=== PATIENT | female | born 1950 ===

== ENCOUNTER 2020-09-06 12:39 | Outpatient (REF) | payer MEDICARE, SELFPAY | END 2020-09-06 12:40 | disposition home or self-care (01) | LOC: HO.LAB 12:39 | PROVIDERS: Visit Provider Nurse Practitioner Family | DX: R05 Cough (principal); Z20.828 Contact with and (suspected) exposure to other viral communicable diseases | CPT/HCPCS: U0003 ==

== ENCOUNTER 2020-09-29 10:15 | Outpatient (REF) | payer MEDICARE, SELFPAY ==
[2020-09-29 11:03] LABS: MANUAL DIFF FLAG NO
[2020-09-29 11:16] LABS: Basophils Percent Auto 0.1 % (0-2); Eosinophils Absolute Auto 0.3 X10*3/uL (0.0-0.4); Eosinophils Percent Auto 3.4 % (0-4); Hematocrit 43.6 % (37-47); Hemoglobin 14.4 g/dl (12.0-16.0); Imm Gran Abs Auto 0.03 X10*3/uL (0.00-0.03); Imm Gran Pct Auto 0.3 % (0.0-0.4); Lymphocytes Absolute Auto 1.7 X10*3/uL (1.2-4.9); Lymphocytes Percent Auto 18.9 % (20-40); Mean Corpuscular Hemoglobin 29.6 pg (27.0-33.0); Mean Corpuscular Volume 89.7 fL (80-98); Mean Platelet Volume 11.1 fL (9.4-12.3); Monocytes Absolute Auto 0.5 X10*3/uL (0.1-1.2); Monocytes Percent Auto 5.5 % (2-11); Neutrophils Absolute Auto 6.3 X10*3/uL (2.0-8.3); Neutrophils Percent Auto 71.8 % (45-73); Platelet Count 210 X10*3/uL (160-400); Red Blood Count 4.86 X10*6/uL (4.20-5.50); Red Cell Distribution Width 15.3 % (11.0-16.0); White Blood Count 8.8 X10*3/uL (4.8-10.8)
[2020-09-29 11:39] LABS: Anion Gap 11 (12-20); Blood Urea Nitrogen 21 mg/dL (9-16); Carbon Dioxide 24 mmol/L (22-29); Chloride 112 mmol/L (96-108); Estimated Glomerular Filt Rate 41; Glucose Random 88 mg/dL (60-115); Magnesium 2.3 mg/dL (1.6-2.6); Potassium 3.8 mmol/l (3.3-5.1); Sodium 143 mmol/L (135-145)
[2020-09-29 11:42] LABS: B Type Natriuretic Peptide 15 pg/mL (<100)
[2020-09-29 12:01] LABS: TSH reflex Free T4 < 0.01 mIU/mL (0.32-4.0)
[2020-09-29 12:39] LABS: Free T4 (Free Thyroxine) 1.16 ng/dL (0.71-1.85)
[2020-09-30 10:07] LABS: LDL Cholesterol Direct 145 mg/dL (<100)
[2020-10-03 13:37] LABS: Vitamin D 25-OH, D2 <4 ng/mL; Vitamin D 25-OH, D3 29 ng/mL; Vitamin D 25-OH, Total 29 ng/mL (30-100)
== END 2020-09-29 10:16 | disposition home or self-care (01) ==
LOC: HO.HMGCLDS 10:15
PROVIDERS: Nurse Practitioner Family; PCP Internal Medicine; Visit Provider Internal Medicine
DX: Z76.0 Encounter for issue of repeat prescription (principal); M81.0 Age-related osteoporosis without current pathological fracture; K21.9 Gastro-esophageal reflux disease without esophagitis; I10 Essential (primary) hypertension; E05.90 Thyrotoxicosis, unspecified without thyrotoxic crisis or storm; K59.01 Slow transit constipation; G43.909 Migraine, unspecified, not intractable, without status migrainosus; G47.9 Sleep disorder, unspecified; M19.90 Unspecified osteoarthritis, unspecified site
CPT/HCPCS: 36415; 80048; 82306; 83721; 83735; 83880; 84439; 84443; 85025

== ENCOUNTER → 2021-01-03 14:22 | Outpatient (BNVA) | payer MEDICARE, SELFPAY | PROVIDERS: PCP Internal Medicine; Visit Provider Internal Medicine | DX: J44.9 Chronic obstructive pulmonary disease, unspecified (principal); R05 Cough; R06.02 Shortness of breath; G47.33 Obstructive sleep apnea (adult) (pediatric); Z79.51 Long term (current) use of inhaled steroids; Z79.899 Other long term (current) drug therapy | CPT/HCPCS: Q3014 ==

== ENCOUNTER 2021-01-04 13:56 | Outpatient (REF) | payer MEDICARE, SELFPAY ==
--- NOTE | ~2021-01-04 | XR_ITS ---
EXAMINATION: XR CHEST CLINICAL INFORMATION: J44.9 - Chronic obstructive pulmonary disease, unspecified COMPARISON: Chest radiographs 06/16/2020, 11/17/2019, 09/14/2018 TECHNIQUE: 2 views of the chest were obtained. FINDINGS: There is stable diffuse coarsening of the bronchiolar markings similar to prior study. There is no airspace consolidation or groundglass opacity or effusion. The cardiac and hilar and mediastinal contours are stable. Again, there is prominent tortuous descending thoracic aorta. No acute bony abnormality. XR/XR chest 2V IMPRESSION: No acute intrathoracic disease.
== END 2021-01-04 13:57 | disposition home or self-care (01) ==
LOC: HO.XRAY 13:56
PROVIDERS: PCP Internal Medicine; Visit Provider Internal Medicine
DX: J44.9 Chronic obstructive pulmonary disease, unspecified (principal); R05 Cough; R06.02 Shortness of breath; G47.33 Obstructive sleep apnea (adult) (pediatric); Z88.5 Allergy status to narcotic agent; Z88.0 Allergy status to penicillin; Z88.8 Allergy status to other drugs, medicaments and biological substances; Z79.899 Other long term (current) drug therapy
CPT/HCPCS: 71046; 99212

== ENCOUNTER → 2021-04-12 12:55 | Outpatient (BNVA) | payer OTHER, SELFPAY | PROVIDERS: Visit Provider Internal Medicine ==

== ENCOUNTER → 2021-06-04 09:38 | Outpatient (BNVA) | payer OTHER, SELFPAY | PROVIDERS: PCP Internal Medicine; Visit Provider Internal Medicine | DX: J44.9 Chronic obstructive pulmonary disease, unspecified (principal); G47.33 Obstructive sleep apnea (adult) (pediatric); R06.02 Shortness of breath; I50.9 Heart failure, unspecified | CPT/HCPCS: 99212 ==

== ENCOUNTER 2021-09-27 08:38 | Outpatient (REF) | payer MEDICARE, SELFPAY | END 2021-09-27 08:39 | disposition home or self-care (01) | LOC: HO.HOSX 08:38 | PROVIDERS: Visit Provider Orthopaedic Surgery | DX: Z13.89 Encounter for screening for other disorder (principal) ==

== ENCOUNTER 2021-10-04 12:14 | Outpatient (REF) | payer MEDICARE, SELFPAY ==
--- NOTE | ~2021-10-04 | XR_ITS ---
EXAMINATION: XR KNEE AP STANDING, BILATERAL CLINICAL INFORMATION: Pain in unspecified knee. COMPARISON: XR right knee 01/22/2019. XR bilateral knees 05/31/2016. TECHNIQUE: AP bilateral standing view of the knees was obtained. FINDINGS: There is osteopenia. There is mild medial compartment narrowing in the right knee with small marginal osteophytes. Ossification adjacent to the medial femoral epicondyle is unchanged and may be related to remote medial collateral ligament injury. There has been an interval revision total knee arthroplasty of the left knee with components incompletely visualized but appearing well-seated in near-anatomic alignment. XR/XR knee standing BI IMPRESSION: Mild medial compartment osteoarthritis in the right knee. Revision left total knee arthroplasty appears intact.
== END 2021-10-04 12:15 | disposition home or self-care (01) ==
LOC: HO.HOSX 12:14
PROVIDERS: Visit Provider Orthopaedic Surgery
DX: T84.093A Other mechanical complication of internal left knee prosthesis, initial encounter (principal); I50.9 Heart failure, unspecified; R06.02 Shortness of breath; M79.89 Other specified soft tissue disorders
CPT/HCPCS: 73565; 99202

== ENCOUNTER → 2022-01-08 15:22 | Outpatient (BNVA) | payer MEDICARE, SELFPAY | PROVIDERS: PCP Internal Medicine; Visit Provider Internal Medicine | DX: G47.33 Obstructive sleep apnea (adult) (pediatric) (principal); J44.9 Chronic obstructive pulmonary disease, unspecified; Z99.81 Dependence on supplemental oxygen | CPT/HCPCS: 99212 ==

== ENCOUNTER → 2022-03-06 14:28 | Outpatient (BNVA) | payer MEDICARE, SELFPAY | PROVIDERS: PCP Internal Medicine; Referring Provider Internal Medicine; Visit Provider Internal Medicine | DX: I50.33 Acute on chronic diastolic (congestive) heart failure (principal); I25.5 Ischemic cardiomyopathy; J44.9 Chronic obstructive pulmonary disease, unspecified | CPT/HCPCS: 93005; 99202 ==

== ENCOUNTER → 2022-03-22 14:44 | Outpatient (REF) | payer MEDICARE, SELFPAY ==
--- NOTE | 2022-03-22 14:48 | CA_ITS ---
Transthoracic Echocardiogram Patient (Last, First, Middle): Padmaja Frederick J Gender: Female Date of : 1950 Age: 71 Procedure Date: 03/22/2022 Procedure Type: Transthoracic Echocardiogram Location: OP Height: 165.1 cm Weight: 98.43 kg BSA: 2.05 m2 Heart Rate: bpm BP: 120 / 70 mmHg Manager: TO/VH Referring MD: Russ Her MD Ibm Bpm Developer: Nikko Franco MD Symptoms: I50.33 - Acute on chronic diastolic (congestive) heart fa... Study Quality: Fair ECG Rhythm: Sinus Conclusions: - 1. Normal LV systolic function with grade 1 diastolic dysfunction with mild LVH 2. Moderately dilated ascending aorta at 4.5 cm 3. Mild aortic regurgitation 4. Normal RV systolic pressure 5. No gross pericardial effusion Findings Left Ventricle Normal left ventricular size and systolic function. There is mildly increased left ventricular wall thickness. The visually estimated ejection fraction is between 55-60%. Regional wall motion abnormalities can not be excluded due to suboptimal endocardial definition. Spectral Doppler is indicative of an impaired relaxation filling pattern. E/E prime ratio is <8, consistent with normal filling pressures. Evidence suggests grade I (mild) diastolic dysfunction. Right Ventricle Normal right ventricular cavity size and systolic function. Atria The left atrium is likely dilated. There is lipomatous hypertrophy of the interatrial septum. There is no evidence of interatrial shunt. The right atrium is normal in size. Aortic Valve The aortic valve was not well visualized. There is no aortic valve stenosis. There is mild aortic valve regurgitation. Mitral Valve Likely normal mitral valve structure and function. There is trace mitral valve regurgitation. There is no mitral valve stenosis. Pulmonic Valve The pulmonic valve was not well visualized. Tricuspid Valve Likely normal tricuspid valve structure and function. There is mild tricuspid valve regurgitation. The right ventricular systolic pressure is normal. The right ventricular systolic pressure is 35 mmHg. Normal right atrial pressure. There is no evidence of pulmonary hypertension. Great Vessels The pulmonary artery was not well visualized. There is moderate dilatation of the ascending aorta measuring 4.50 cm. Venous The inferior vena cava is normal in size and collapses greater than 50% with inspiration. Pericardium/Pleural There is no evidence of pericardial effusion. Measurements 2D Linear Measurements IVSd: 1.32 0.6-0.9/0.6-1.0 cm LVIDd: 4.25 3.9-5.3/4.2-5.9 cm LVIDd Index: 2.07 2.4-3.2/2.2-3.1 cm/m2 LVIDs: 2.76 2.0-3.6 cm LVPWd: 1.18 0.7-1.1 cm LA Diam: 3.90 2.7-3.8/3.0-4.0 cm LAIDs Index: 1.90 1.5-2.3 cm/m2 LV Mass: 240.01 67-162/88-224 g LV Mass Index: 117.08 43-95/49-115 g/m2 LVOT Diam: 2.50 3.0+(-)1.3 cm Mitral Valve MV Pk E: 0.46 MV PK A: 0.75 MV Decel Time: 166.00 E/A: 0.60 E'Lateral: 10.70 E'Medial: 7.40 E/E' Med: 6.20 E/E' Lat: 4.30 PHT: 49.00 MVA PHT: 4.49 Decel [place]: 2.78 Aortic Valve AoV Pk Dirk: 1.36 AoV Mn Dirk: 0.88 AoV VTI: 0.22 AoV Pk Grad: 7.00 Aov Mn Grad: 4.00 MAGO Cont.VTI: 4.42 AI Pk Dirk: 5.11 AI [place]: 2.70 LVOT LVOT Pk Dirk: 1.10 LVOT Mn Dirk: 0.63 LVOT VTI: 0.20 LVOT Pk Grad: 5.00 LVOT Mn Grad: 2.00 LVOT Diam: 2.50 LVOT Area: 4.91 Diastolic Function MV Pk E: 0.46 MV Pk A: 0.75 E/A: 0.60 E'Medial: 7.40 E/E' Med: 6.20 E' Laterial: 10.70 E/E' Lat: 4.30 Right Ventricle TAPSE (mm): 22.10 TVS' Dirk: 15.10 Tricuspid Valve TR Pk Dirk: 2.21 TR Pk Grad: 20.00 RA Press: 15.00 RVSP: 35.00 Great Vessels Aorta Sinus of Valsalva: 3.92 2.0-3.5 cm Ao Asc: 4.50 2.1-3.4 cm Updated in Other Vendor System with Status of Final Nikko Franco MD electronically signed on 03/23/2022 12:55:25 PM with status of Final
== END ==
LOC: HO.CARD 14:44
PROVIDERS: PCP Internal Medicine; Visit Provider Internal Medicine
DX: I50.33 Acute on chronic diastolic (congestive) heart failure (principal)
CPT/HCPCS: 93306

== ENCOUNTER 2022-08-09 13:53 | Outpatient (REF) | payer OTHER, SELFPAY ==
--- NOTE | ~2022-08-09 | XR_ITS ---
EXAMINATION: XR KNEE, LEFT CLINICAL INFORMATION: Osteoarthritis COMPARISON: Previous x-ray most recent September 2021 TECHNIQUE: Four views of the left knee. FINDINGS: There is a 3 component left knee replacement. The proximal and distal ends of the prosthesis is not completely imaged both views. No fracture or dislocation. No joint effusion. XR/XR knee LT 2V IMPRESSION: Left knee replacement. No x-ray abnormality seen. The proximal and distal end of the prosthesis are not completely imaged on 2 views.
== END 2022-08-09 13:54 | disposition home or self-care (01) ==
LOC: HO.HMGCX 13:53
PROVIDERS: PCP Internal Medicine; Visit Provider Internal Medicine
DX: M17.9 Osteoarthritis of knee, unspecified (principal)
CPT/HCPCS: 73560

== ENCOUNTER → 2022-08-29 13:12 | Outpatient (BNVA) | payer OTHER, SELFPAY | PROVIDERS: PCP Internal Medicine; Visit Provider Internal Medicine | DX: J44.9 Chronic obstructive pulmonary disease, unspecified (principal); G47.33 Obstructive sleep apnea (adult) (pediatric); R06.02 Shortness of breath; I50.9 Heart failure, unspecified | CPT/HCPCS: 99212 ==

== ENCOUNTER 2022-09-25 13:59 | Outpatient (REF) | payer OTHER, SELFPAY ==
[2022-09-25 14:25] LABS: MANUAL DIFF FLAG NO
[2022-09-25 15:04] LABS: Basophils Percent Auto 0.4 % (0-2); Eosinophils Absolute Auto 0.2 X10*3/uL (0.0-0.4); Eosinophils Percent Auto 3.1 % (0-4); Hematocrit 47.1 % (37.0-47.0); Hemoglobin 15.3 g/dl (12.0-16.0); Imm Gran Abs Auto 0.01 X10*3/uL (0.00-0.03); Imm Gran Pct Auto 0.1 % (0.0-0.4); Lymphocytes Absolute Auto 2.4 X10*3/uL (1.2-4.9); Lymphocytes Percent Auto 35.2 % (20-40); Mean Corpuscular HGB Conc 32.5 g/dl (31.0-35.0); Mean Corpuscular Hemoglobin 27.3 pg (27.0-33.0); Mean Corpuscular Volume 84.1 fL (80.0-98.0); Mean Platelet Volume 10.8 fL (9.4-12.3); Monocytes Absolute Auto 0.4 X10*3/uL (0.1-1.2); Monocytes Percent Auto 5.6 % (2-11); Neutrophils Absolute Auto 3.7 x10*3/uL (2.0-8.3); Neutrophils Percent Auto 55.6 % (45-73); Platelet Count 201 X10*3/uL (160-400); Red Cell Distribution Width 16.5 % (11.0-16.0); White Blood Count 6.7 X10*3/uL (4.8-10.8)
[2022-09-25 15:57] LABS: Alanine Aminotransferase 10 U/L (0-31); Albumin Level 3.8 g/dL (3.5-5.0); Alkaline Phosphatase 113 U/L (39-117); Anion Gap 10 (12-20); Aspartate Amino Transferase 12 U/L (5-31); Bilirubin Total 0.3 mg/dL (0.0-1.0); Blood Urea Nitrogen 15 mg/dL (9-16); Calcium 9.9 mg/dL (8.4-10.2); Carbon Dioxide 28 mmol/L (22-29); Chloride 111 mmol/L (96-108); Estimated Glomerular Filt Rate 38; Glucose Random 97 mg/dL (60-115); Potassium 4.3 mmol/L (3.3-5.1); Sodium 145 mmol/L (135-145); TSH reflex Free T4 < 0.01 uIU/mL (0.32-4.0); Total Protein 7.7 g/dL (6.5-8.0)
[2022-09-25 17:05] LABS: Free T4 (Free Thyroxine) 1.29 ng/dL (0.71-1.85)
[2022-09-26 07:28] LABS: LDL Cholesterol Direct 113 mg/dL (<100)
== END 2022-09-25 14:00 | disposition home or self-care (01) ==
LOC: HO.LAB 13:59
PROVIDERS: Absent Provider Internal Medicine; PCP Internal Medicine; Visit Provider Internal Medicine
DX: I11.0 Hypertensive heart disease with heart failure (principal); I50.33 Acute on chronic diastolic (congestive) heart failure; I25.5 Ischemic cardiomyopathy; R60.0 Localized edema; E05.90 Thyrotoxicosis, unspecified without thyrotoxic crisis or storm; J44.9 Chronic obstructive pulmonary disease, unspecified; K21.9 Gastro-esophageal reflux disease without esophagitis; M81.0 Age-related osteoporosis without current pathological fracture; M17.9 Osteoarthritis of knee, unspecified; Z72.0 Tobacco use
CPT/HCPCS: 36415; 80053; 83721; 84439; 84443; 85025; 93005; 99212

== ENCOUNTER 2023-07-16 14:23 | Outpatient (AMB) | payer OTHER, SELFPAY ==
[2023-07-16 14:29] VITALS: BP 108/70; PULSE 84; O2SAT 93
--- NOTE | 2023-07-16 14:29 | MHC.OFFVIS ---
Intake Vital Signs 07/16/23 14:29 Height 5 ft 5 in BMI Reason not done Patient refused/unable BP 108/70 Blood Pressure Location Lt brachial Position Sitting Pulse 84 Pulse Source Pulse Oximeter Pulse Oximetry (%) 93 Oxygen Delivery Method Room Air Intake Visit Reasons: copd Intake Note: pt is here for follow up and states she uses her oxygen 24 hours, tries to do without sometimes, but cannot go very far. Refill on albuterol for nebulizer and ventolin hfa inhaler. pt would like a refill on fluid pill if your willing. Stock Control Clerk Required: No Allergies lisinopril [LISINOPRIL] Allergy (Severe, Verified 07/16/23 15:00) FACIAL SWELLING, anaphylaxis metoprolol [METOPROLOL] Allergy (Severe, Verified 07/16/23 15:00) SWOLLEN TONGUE Penicillins [PENICILLINS] Allergy (Severe, Verified 07/16/23 15:00) ANAPHYLAXIS coconut Allergy (Intermediate, Verified 07/16/23 15:00) SWELLING morphine [MORPHINE] Allergy (Intermediate, Verified 07/16/23 15:00) VOMITING nicotine Adverse Reaction (Unknown, Verified 07/16/23 15:00) Nightmares Medication List - Last Reconciled 07/16/23 by Min Saha MD acetaminophen 325 mg PO ONCE PRN 30 days albuterol sulfate 90 mcg/actuation (Ventolin HFA) 2 puffs PO Q4-6H PRN albuterol sulfate 1.25 mg (3 mL) inhalation Q6H PRN alendronate 70 mg PO QWEEK aspirin 81 mg PO DAILY [Blood pressure machine As directed] [Body wipes As directed] diaper,brief,adult,disposable As directed disposable gloves As directed epinephrine IM ONCE PRN fluticasone propion-salmeterol 115-21 mcg/actuation (Advair HFA) 2 puffs PO BID [Medium size gloves As directed NS] multivitamin (Daily Multi-Vitamin tablet) 1 tab PO DAILY 90 days omeprazole 40 mg PO QAM PRN 90 days simvastatin 20 mg PO DAILY 90 days torsemide 40 mg (2 x 20 mg) PO BID umeclidinium 62.5 mcg/actuation (Incruse Ellipta) 1 inh inhalation DAILY [Updraft machine As directed] [Weighing machine As directed] Do you need a note to return to daycare/school/sports/work: No HPI copd HPI Details THIS 72 YEARS OLD VERY PLEASANT FEMALE WITH THE MULTIPLE COMORBIDITIES, IS COMING FOR FOLLOW-UP AFTER ALMOST 10 MONTHS, BASICALLY SHE HAS PROBLEM WITH THE TRANSPORT, AND MANY TIMES HAS TO CANCEL HER APPOINTMENTS, DUE TO NONAVAILABILITY OF THE TRANSFER. BREATHING MADERA DOING OKAY BUT SHE GETS SHORT OF BREATH ON MINIMAL EFFORT. STAYS IN THE HOUSE MOSTLY. USES O2. 4 L/MINUTE DAY AND NIGHT SHE DOES HAVE HISTORY OF SLEEP APNEA BUT HAS NEVER BEEN ABLE TO USE THE CPAP. SHE HAS ASSOCIATED CONGESTIVE HEART FAILURE AND RETAINS FLUID IN THE LEGS. CURRENTLY SHE IS OUT OF HER DIURETIC PILLS AND HAS NOT BEEN ABLE TO SEE THE [employer] ARCHITECT. [facility] Medical History CHF (congestive heart failure) JAYLENE (obstructive sleep apnea) Osteoporosis Chronic GERD Hypertension, essential Elevated serum immunoglobulin free light chain level Hyperthyroidism Swelling of lower extremity Constipation by delayed colonic transit Migraine Difficulty sleeping Arthrosis COPD (chronic obstructive pulmonary disease) Surgical History History of knee replacement procedure of left knee H/O colonoscopy Social History Housing: House Patient Tobacco Use Status: Current someday Tobacco user Tobacco use type: Cigarette Cigarettes Per Day: 2 e-Cigarette/Vaping Use: Never Used service: No Current occupational status: disabled Cognitive needs: No Hearing needs: No Vision needs: Yes Review of Systems Const All systems reviewed & are unremarkable except as noted in HPI and below Reports no additional complaints ENT Reports no additional complaints Card Reports irregular heart rhythm, Reports leg edema and Reports dyspnea on exertion Resp Reports as per HPI and Reports dyspnea on exertion GI Reports heartburn (treated with med .) Reports no additional complaints Musc Reports abnormal gait (Non ambulatory because of marked weakness of lower extremities, uses wheelc), Reports back pain and Reports arthralgias Skin/Breast Reports system reviewed and no additional complaints, except as documented Neuro Reports abnormal gait (Non ambulatory because of marked weakness of lower extremities, uses wheelc) Psych Reports no additional complaints Physical Exam Vital Signs: Last Vital Signs Pulse 84 07/16/23 14:29 BP 108/70 07/16/23 14:29 Pulse Ox 93 07/16/23 14:29 Oxygen Delivery Method Room Air 07/16/23 14:29 Const General: comfortable, no acute distress, alert and awake Orientation/consciousness: patient oriented x3 HEENT Head: Yes normal to inspection General nose exam: No nasal polyps present and No nasal discharge present Face and sinus: Yes sinuses nontender Mouth: oropharynx normal Throat: Yes posterior oropharynx normal Eyes General: appearance normal, both eyes and all related structures Neck Neck: Yes normal visual inspection, Yes no lymphadenopathy and Yes trachea midline Thyroid: Thyroid normal Chest Chest palpation & inspection: normal inspection of the chest, normal palpation of entire chest wall and no tenderness Resp Other: BREATH SOUNDS ARE DISTANT, ESPECIALLY DECREASED OVER THE BASILAR AREAS. NO WHEEZES, BUT INSPIRATORY CREPITATIONS ARE HEARD OVER BOTH BASILAR AREAS ESPECIALLY OVER THE RIGHT LOWER LOBE, Cardio Palpation: normal PMI Rate: regular rate Rhythm: regular rhythm Heart sounds: no gallops and no murmurs GI Palpation (GI): Soft to palpation, nontender, No hepatosplenomegaly present and no masses Auscultation: normal bowel sounds Back/Spine/Pelvis Thoracic/Lumbar Spine: thoracic and lumbar spine normal to inspection and thoraco-lumbar ROM limited Skin General skin exam: no rashes or lesions noted Neuro General: patient oriented x3, No gait normal (GAIT IMPAIRED AND SHE IS MOSTLY IN THE WHEELCHAIR, AT HOME ,USES WALKER) and no focal motor deficits Cranial nerves: Yes CN's II-XII intact bilaterally Extrem General: Yes edema (SHE HAS 4+ EDEMA OF THE LOWER EXTREMITIES EXTENDING UP TO THE WAIST) Psych Appearance: grossly normal Speech and movement: Normal speech and movement present Assessment & Plan Assessment & Plan (1) COPD, severe: Comment: PATIENT IS A KNOWN CASE OF CHRONIC OBSTRUCTIVE PULMONARY DISEASE, SEVERE, BUT REMAINS WELL CONTROLLED. TX : INCRUSE ELLIPTA 1 INHALATION DAILY ADVAIR HFA 115-21 2 PUFFS B.I.D.. ALBUTEROL HFA 2 PUFFS Q 6 HOURS P.R.N. ALSO USES ALBUTEROL INHALATION SOLUTION IN THE NEBULIZER Q 4-6 HOURS P.R.N., Scripts are renewed Code(s): J44.9 - Chronic obstructive pulmonary disease, unspecified (2) JAYLENE (obstructive sleep apnea): Comment: PATIENT has not been using CPAP. PATIENT HAS NOT BEEN ABLE TO USE THE CPAP. SHE DOES USE O2 4 L/MINUTE DURING THE NIGHT. HAS ALSO BEEN USING. OXYGEN DURING THE DAYTIME Code(s): G47.33 - Obstructive sleep apnea (adult) (pediatric) (3) Shortness of breath: Comment: DYSPNEA ON EXERTION IS DUE TO SEVERE COPD / CHF. SHE IS NOT ABLE TO DO ANY PHYSICAL ACTIVITY OXYGEN 4 L/MINUTE IS ALLEVIATING HER DYSPNEA, Code(s): R06.02 - Shortness of breath Medications: Changed From albuterol sulfate 90 mcg/actuation (Ventolin HFA) 2 puffs PO Q4-6H PRN 18 grams 0RF for wheezing To albuterol sulfate 90 mcg/actuation (Ventolin HFA) 2 puffs PO Q4-6H PRN 18 grams 3RF for wheezing 30 days From albuterol sulfate 1.25 mg (3 mL) inhalation Q6H PRN 75 mL 0RF for wheezing J44.9 - Chronic obstructive pulmonary disease, unspecified To albuterol sulfate 1.25 mg (3 mL) inhalation Q6H PRN 75 mL 3RF for wheezing/rESP. DISTRESS 30 days J44.9 - Chronic obstructive pulmonary disease, unspecified Refilled torsemide 40 mg (2 x 20 mg) PO BID 80 tabs 1RF Coding Level of Care Code Est Pt Level 4 (65930) Diagnoses COPD, severe J44.9 JAYLENE (obstructive sleep apnea) G47.33 Shortness of breath R06.02
== END 2023-07-16 15:00 | disposition home or self-care (01) ==
PROVIDERS: PCP Internal Medicine; Visit Provider Internal Medicine
DX: J44.9 Chronic obstructive pulmonary disease, unspecified (principal); G47.33 Obstructive sleep apnea (adult) (pediatric); R06.02 Shortness of breath
CPT/HCPCS: 99214

== ENCOUNTER → 2023-07-16 14:23 | Outpatient (BNVA) | payer OTHER, SELFPAY | PROVIDERS: PCP Internal Medicine; Visit Provider Internal Medicine | DX: J44.9 Chronic obstructive pulmonary disease, unspecified (principal); G47.33 Obstructive sleep apnea (adult) (pediatric); R06.02 Shortness of breath | CPT/HCPCS: 99212 ==

== ENCOUNTER 2023-11-07 15:22 | Outpatient (AMB) | payer OTHER, SELFPAY ==
[2023-11-07 15:27] VITALS: BP 116/70; PULSE 117; O2SAT 95
--- NOTE | 2023-11-07 15:27 | A.OFFPC_ITS ---
Vital Signs 11/07/23 15:27 Height 5 ft 5 in BMI Reason not done Patient refused/unable BP 116/70 Blood Pressure Location Lt brachial Position Sitting Pulse 117 H Pulse Source Pulse Oximeter Pulse Oximetry (%) 95 Oxygen Delivery Method Room Air Intake Visit Reasons: Overdue appt~ Allergies lisinopril [LISINOPRIL] Allergy (Severe, Verified 11/07/23 15:30) FACIAL SWELLING, anaphylaxis metoprolol [METOPROLOL] Allergy (Severe, Verified 11/07/23 15:30) SWOLLEN TONGUE Penicillins [PENICILLINS] Allergy (Severe, Verified 11/07/23 15:30) ANAPHYLAXIS coconut Allergy (Intermediate, Verified 11/07/23 15:30) SWELLING morphine [MORPHINE] Allergy (Intermediate, Verified 11/07/23 15:30) VOMITING nicotine Adverse Reaction (Unknown, Verified 11/07/23 15:30) Nightmares Medication List - Last Reconciled 11/07/23 by Lorrie Rene MD acetaminophen 325 mg PO ONCE PRN 30 days albuterol sulfate 1.25 mg (3 mL) inhalation Q6H PRN albuterol sulfate 90 mcg/actuation (Ventolin HFA) 2 puffs PO Q4-6H PRN 30 days aspirin 81 mg PO DAILY [Blood pressure machine As directed] [Body wipes As directed-uses 4 per day] diaper,brief,adult,disposable As directed diaper,brief,adult,disposable Pull up briefs, size large disposable gloves As directed epinephrine IM ONCE PRN fluticasone propion-salmeterol 115-21 mcg/actuation (Advair HFA) 2 puffs PO BID gabapentin mg PO [Medium size gloves As directed NS] methimazole mg PO multivitamin (Daily Multi-Vitamin tablet) 1 tab PO DAILY 90 days omeprazole 40 mg PO QAM PRN 90 days simvastatin 20 mg PO DAILY 90 days torsemide 40 mg (2 x 20 mg) PO BID umeclidinium 62.5 mcg/actuation (Incruse Ellipta) 1 inh inhalation DAILY [Updraft machine As directed] [Weighing machine As directed] Tobacco use date assessed: 11/07/23 Fall risk assessment: No Falls in past year Last assessed Fall Risk: 11/07/23 Dental Screening Dental Screen Date: 11/07/23 Did you have a dental visit in the last 12 months?: Yes Did you have a dental problem in the last 6 months where you did not have access to dental care?: No Was dental information given to patient?: Patient has dentist HPI Overdue appt~ HPI Details Patient is a 72-year-old female with history of ischemic cardiomyopathy, chronic lower extremity edema with stasis dermatosis, hyperthyroidism hypertension, chronic GERD, osteoporosis, obstructive sleep apnea, severe COPD, oxygen dependent, tobacco abuse, congestive heart failure, chronic respiratory failure, moderate aortic regurgitation, urinary incontinence, diapers and wheelchair dependent Patient was last seen 11/06/2022 after that patient missed numerous appointments She has a history of cardiomyopathy and chronic edema she is supposed to be seeing Cardiology for management but she has not seen 1 in a while. Patient is noncompliant with medical management She also have COPD and continued to smoke, however she has cut down to 4 cigarettes a day Patient is on 3 L of oxygen as well, she has appointment in January with Dr. Giang [facility] Last visit with Cardiology was in 2021 at [facility], I have created a new referral for She is wheelchair-bound Have chronic urinary incontinence, she is changing diapers 4 times a day She is in need of medical supplies which we will take care of. Patient has history of hyperfunctioning thyroid gland and is on methimazole through endocrinology [facility] She is also due for labs order placed patient will come in for blood test, she does have a transportation to her appointments Lipid disorder, taking simvastatin which I will hold until I have labs Tylenol for aches and pains and omeprazole for chronic GERD I am stopping her Fosamax, as patient has not had bone density scan in a while, and she does not want to [facility] Medical History CHF (congestive heart failure) JAYLENE (obstructive sleep apnea) Osteoporosis Chronic GERD Hypertension, essential Elevated serum immunoglobulin free light chain level Hyperthyroidism Swelling of lower extremity Constipation by delayed colonic transit Migraine Difficulty sleeping Arthrosis COPD (chronic obstructive pulmonary disease) Surgical History History of knee replacement procedure of left knee H/O colonoscopy Social History Housing: House Patient Tobacco Use Status: Current everyday Tobacco user Tobacco use type: Cigarette Cigarettes Per Day: 5 e-Cigarette/Vaping Use: Never Used service: No Current occupational status: disabled Cognitive needs: No Hearing needs: No Vision needs: Yes Questionnaire PHQ-9 Over the last 2 weeks, how often have you been bothered by any of the following problems? 1. Little interest or pleasure in doing things: not at all 2. Feeling down, depressed, or hopeless: not at all 3. Trouble falling or staying asleep, or sleeping too much: not at all 4. Feeling tired or having little energy: not at all 5. Poor appetite or overeating: not at all 6. Feeling bad about yourself - or that you are a failure or have let yourself or your family down: not at all 7. Trouble concentrating on things, such as reading the newspaper or watching television: not at all 8. Moving or speaking so slowly that other people could have noticed. Or the opposite - being so fidgety or restless that you have been moving around a lot more than usual: not at all 9. Thoughts that you would be better off or of hurting yourself in some way: not at all Total score: 0 Depression Screening Interpretation: Negative Depression Screening Done: Yes [id number] - PHQ-9 Billing: Yes Source: Developed by Drs. Ham Baker, Brook White, Wilbert Pompa and colleagues, with an educational shantelle from [employer]. Thrive Questionnaire Date Thrive assessed: 11/07/23 I am a: Patient What is your living situation today?: I have a steady place to live Within the past 12 months, did the food you bought not last and you didn't have the money to get more?: Never true Within the past 12 months, did you worry whether your food would run out before you got money to buy more?: Never true Do you have trouble paying for medicines?: No Do you have trouble getting transportation to medical appointments?: No Do you have trouble paying your heating and electricity bill?: No Do you have trouble taking care of your child, family member or friend?: No Do you have trouble with day-to-day activities such as bathing, preparing meals, shopping, managing finances, etc.?: No Are you currently unemployed and looking for a job?: No Are you interested in more education?: No Please select the resources that you would like help with: None Currently or been in a relationship where the following occur: no concerns reported THRIVE Score: 0 MIKE-7 AMB Questionnaire MIKE-7 Date MIKE - 7 assessed: 11/07/23 Feeling nervous, anxious, or on edge: 0 = Not at all Not being able to stop or control worryin = Not at all Worrying too much about different things: 0 = Not at all Trouble relaxin = Not at all Being so restless that it is hard to sit still: 0 = Not at all Becoming easily annoyed or irritable: 0 = Not at all Feeling afraid as if something awful might happen: 0 = Not at all Total MIKE-7 score (0-4 normal; 5-9 mild; 10-14 moderate; 15-21 severe): 0 Source: Developed by Drs. Ham Baker, Brook White, Wilbert Pompa and colleagues, with an educational shantelle from [employer]. MIKE-7 Assessment Billing MIKE-7 Assessment Tool: MIKE-7 Assessment 77040 Review of Systems Const Denies chills and Denies fever(s) ENT Denies epistaxis and Denies nasal discharge Card Denies chest pain Resp Denies chest congestion and Denies hemoptysis GI Denies diarrhea and Denies nausea Skin/Breast Denies rash Neuro Reports no additional complaints Psych Reports no additional complaints Endo Reports no additional complaints Physical exam (Primary Care) Vital Signs: Last Vital Signs Pulse 117 H 11/07/23 15:27 BP 116/70 11/07/23 15:27 Pulse Ox 95 11/07/23 15:27 Oxygen Delivery Method Room Air 11/07/23 15:27 Tobacco/Smoking Status: Tobacco use Status Tobacco use date assessed 11/07/23 11/07/23 15:36 Patient Tobacco Use Status Current everyday Tobacco 11/07/23 15:36 Tobacco use type Cigarette 11/07/23 15:29 e-Cigarette/Vaping Use Never Used 11/07/23 15:29 PHQ-9: PHQ-9 Score PHQ-9: Total score 0 11/07/23 15:36 Depression Screening Interpretation: Negative Thrive Assessment: Date of Thrive Assessment Date Thrive assessed 11/07/23 11/07/23 15:36 Currently or been in a relationship where the following occur: no concerns reported Const General: cooperative, comfortable and no acute distress Orientation/consciousness: patient oriented x3 HENMT Head: Yes normocephalic Eyes General: appearance normal, both eyes and all related structures Neck Neck: Yes supple Resp Effort & Inspection: normal respiratory effort, no cough and no stridor Cardio Other: Tachycardia Heart sounds: S1 normal heart sound present and S2 normal heart sound present Skin General skin exam: turgor normal Neuro General: patient oriented x3, tone normal and moves all extremities Extrem Other: 2+ pitting edema lower extremity bilateral Assessment and Plan Assessment & Plan (1) Ischemic cardiomyopathy: Code(s): I25.5 - Ischemic cardiomyopathy (2) Swelling of lower extremity: Code(s): M79.89 - Other specified soft tissue disorders (3) CHF (congestive heart failure): Comment: Patient being followed by Cardiology Code(s): I50.9 - Heart failure, unspecified Qualifiers: Heart failure type: other Qualified Code(s): I50.9 - Heart failure, unspecified (4) Urinary incontinence: Code(s): R32 - Unspecified urinary incontinence Qualifiers: Urinary Incontinence type: mixed stress and urge incontinence Qualified Code(s): N39.46 - Mixed incontinence (5) Moderate aortic regurgitation: Code(s): I35.1 - Nonrheumatic aortic (valve) insufficiency (6) Chronic respiratory failure: Code(s): J96.10 - Chronic respiratory failure, unspecified whether with hypoxia or hypercapnia Qualifiers: Respiratory failure complication: hypoxia Qualified Code(s): J96.11 - Chronic respiratory failure with hypoxia (7) Hyperthyroidism: Code(s): E05.90 - Thyrotoxicosis, unspecified without thyrotoxic crisis or storm (8) Hypertension, essential: Code(s): I10 - Essential (primary) hypertension (9) Chronic GERD: Code(s): K21.9 - Gastro-esophageal reflux disease without esophagitis (10) Osteoporosis: Code(s): M81.0 - Age-related osteoporosis without current pathological fracture Qualifiers: Osteoporosis type: age-related Presence of current pathological fracture: without current pathological fracture Qualified Code(s): M81.0 - Age- related osteoporosis without current pathological fracture (11) JAYLENE (obstructive sleep apnea): Comment: PATIENT has not been using CPAP. PATIENT HAS NOT BEEN ABLE TO USE THE CPAP. SHE DOES USE O2 4 L/MINUTE DURING THE NIGHT. HAS ALSO BEEN USING. OXYGEN DURING THE DAYTIME Code(s): G47.33 - Obstructive sleep apnea (adult) (pediatric) (12) COPD, severe: Comment: PATIENT IS A KNOWN CASE OF CHRONIC OBSTRUCTIVE PULMONARY DISEASE, SEVERE, BUT REMAINS WELL CONTROLLED. TX : INCRUSE ELLIPTA 1 INHALATION DAILY ADVAIR HFA 115-21 2 PUFFS B.I.D.. ALBUTEROL HFA 2 PUFFS Q 6 HOURS P.R.N. ALSO USES ALBUTEROL INHALATION SOLUTION IN THE NEBULIZER Q 4-6 HOURS P.R.N., Scripts are renewed Code(s): J44.9 - Chronic obstructive pulmonary disease, unspecified (13) Tobacco abuse: Code(s): Z72.0 - Tobacco use (14) Supplemental oxygen dependent: Code(s): Z99.81 - Dependence on supplemental oxygen (15) Dry skin dermatitis: Code(s): L85.3 - Xerosis cutis (16) Cardiomyopathy: Code(s): I42.9 - Cardiomyopathy, unspecified Qualifiers: Cardiomyopathy type: other Qualified Code(s): I42.8 - Other cardiomyopathies (17) Wheelchair dependence: Code(s): Z99.3 - Dependence on wheelchair (18) Non-compliant behavior: Code(s): R46.89 - Other symptoms and signs involving appearance and behavior Plan Patient is a 72-year-old female with history of ischemic cardiomyopathy, chronic lower extremity edema with stasis dermatosis, hyperthyroidism hypertension, chronic GERD, osteoporosis, obstructive sleep apnea, severe COPD, oxygen dependent, tobacco abuse, congestive heart failure, chronic respiratory failure, moderate aortic regurgitation, urinary incontinence, diapers and wheelchair dependent Patient was last seen 11/06/2022 after that patient missed numerous appointments She has a history of cardiomyopathy and chronic edema she is supposed to be seeing Cardiology for management but she has not seen 1 in a while. Patient is noncompliant with medical management She also have COPD and continued to smoke, however she has cut down to 4 cigarettes a day Patient is on 3 L of oxygen as well, she has appointment in January with Dr. Giang [facility] Last visit with Cardiology was in 2021 at [facility], I have created a new referral for She is wheelchair-bound Have chronic urinary incontinence, she is changing diapers 4 times a day She is in need of medical supplies which we will take care of. Patient has history of hyperfunctioning thyroid gland and is on methimazole through endocrinology [facility] She is also due for labs order placed patient will come in for blood test, she does have a transportation to her appointments Lipid disorder, taking simvastatin which I will hold until I have labs Tylenol for aches and pains and omeprazole for chronic GERD I am stopping her Fosamax, as patient has not had bone density scan in a while, and she does not want to Orders: Orders Comprehensive Met. Panel Today E05.90 - Thyrotoxicosis, unspecified without thyrotoxic crisis or storm, I10 - Essential (primary) hypertension, I25.5 - Ischemic cardiomyopathy, I35.1 - Nonrheumatic aortic (valve) insufficiency, I50.9 - Heart failure, unspecified, J44.9 - Chronic obstructive pulmonary disease, unspecified, J96.10 - Chronic respiratory failure, unspecified whether with hypoxia or hypercapnia, K21.9 - Gastro-esophageal reflux disease without esophagitis, M81.0 - Age-related osteoporosis without current pathological fracture Complete Blood Count Auto Diff Today E05.90 - Thyrotoxicosis, unspecified without thyrotoxic crisis or storm, I10 - Essential (primary) hypertension, I25.5 - Ischemic cardiomyopathy, I35.1 - Nonrheumatic aortic (valve) insufficiency, I50.9 - Heart failure, unspecified, J44.9 - Chronic obstructive pulmonary disease, unspecified, J96.10 - Chronic respiratory failure, unspecified whether with hypoxia or hypercapnia, K21.9 - Gastro-esophageal reflux disease without esophagitis, M81.0 - Age-related osteoporosis without current pathological fracture LDL Cholesterol Direct Today E05.90 - Thyrotoxicosis, unspecified without thyrotoxic crisis or storm, I10 - Essential (primary) hypertension, I25.5 - Ischemic cardiomyopathy, I35.1 - Nonrheumatic aortic (valve) insufficiency, I50.9 - Heart failure, unspecified, J44.9 - Chronic obstructive pulmonary disease, unspecified, J96.10 - Chronic respiratory failure, unspecified whether with hypoxia or hypercapnia, K21.9 - Gastro-esophageal reflux disease without esophagitis, M81.0 - Age-related osteoporosis without current pathological fracture TSH reflex Free T4 Today E05.90 - Thyrotoxicosis, unspecified without thyrotoxic crisis or storm, I10 - Essential (primary) hypertension, I25.5 - Ischemic cardiomyopathy, I35.1 - Nonrheumatic aortic (valve) insufficiency, I50.9 - Heart failure, unspecified, J44.9 - Chronic obstructive pulmonary disease, unspecified, J96.10 - Chronic respiratory failure, unspecified whether with hypoxia or hypercapnia, K21.9 - Gastro-esophageal reflux disease without esophagitis, M81.0 - Age-related osteoporosis without current pathological fracture Referrals Cardiology Referral I25.5 - Ischemic cardiomyopathy Medications: Changed From torsemide 40 mg (2 x 20 mg) PO BID 80 tabs 1RF To torsemide 20 mg PO BID 60 tabs 0RF 30 days Coding Level of Care Code Est Pt Level 5 (63691) Diagnoses Ischemic cardiomyopathy I25.5 Swelling of lower extremity M79.89 Other congestive heart failure I50.9 Heart failure type: other Mixed stress and urge urinary incontinence N39.46 Urinary Incontinence type: mixed stress and urge incontinence Moderate aortic regurgitation I35.1 Chronic respiratory failure with hypoxia J96.11 Respiratory failure complication: hypoxia Hyperthyroidism E05.90 Hypertension, essential I10 Chronic GERD K21.9 Age-related osteoporosis without current pathological fracture M81.0 Osteoporosis type: age-related Presence of current pathological fracture: without current pathological fracture JAYLENE (obstructive sleep apnea) G47.33 COPD, severe J44.9 Tobacco abuse Z72.0 Supplemental oxygen dependent Z99.81 Dry skin dermatitis L85.3 Other cardiomyopathy I42.8 Cardiomyopathy type: other Wheelchair dependence Z99.3 Non-compliant behavior R46.89 Additional Codes MIKE-7 Assessment Billing - MIKE-7 Assessment Tool: MIKE-7 Assessment [id number] ([id number])
== END 2023-11-07 16:01 | disposition home or self-care (01) ==
PROVIDERS: PCP Internal Medicine; Visit Provider Internal Medicine
DX: I50.9 Heart failure, unspecified (principal); J96.11 Chronic respiratory failure with hypoxia; J44.9 Chronic obstructive pulmonary disease, unspecified; I42.8 Other cardiomyopathies; I25.5 Ischemic cardiomyopathy; M79.89 Other specified soft tissue disorders; N39.46 Mixed incontinence; I35.1 Nonrheumatic aortic (valve) insufficiency; E05.90 Thyrotoxicosis, unspecified without thyrotoxic crisis or storm; I10 Essential (primary) hypertension; K21.9 Gastro-esophageal reflux disease without esophagitis; M81.0 Age-related osteoporosis without current pathological fracture
CPT/HCPCS: 99215

== ENCOUNTER 2024-04-15 13:34 | Outpatient (AMB) | payer OTHER, SELFPAY ==
[2024-04-15 13:41] VITALS: BP 128/80; PULSE 99; O2SAT 93
--- NOTE | 2024-04-15 13:41 | A.OFFVIS_ITS ---
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 Allergies lisinopril [LISINOPRIL] Allergy (Severe, Verified 04/15/24 14:17) FACIAL SWELLING, anaphylaxis metoprolol [METOPROLOL] Allergy (Severe, Verified 04/15/24 14:17) SWOLLEN TONGUE Penicillins [PENICILLINS] Allergy (Severe, Verified 04/15/24 14:17) ANAPHYLAXIS coconut Allergy (Intermediate, Verified 04/15/24 14:17) SWELLING morphine [MORPHINE] Allergy (Intermediate, Verified 04/15/24 14:17) VOMITING nicotine Adverse Reaction (Unknown, Verified 04/15/24 14:17) Nightmares Medication List - Last Reconciled 04/15/24 by Min Saha MD acetaminophen 325 mg PO ONCE PRN 30 days albuterol sulfate 90 mcg/actuation (Ventolin HFA) 2 puffs PO Q4-6H PRN 30 days albuterol sulfate 1.25 mg (3 mL) inhalation Q6H PRN aspirin 81 mg PO DAILY [Blood pressure machine As directed] [Body wipes As directed-uses 4 per day] diaper,brief,adult,disposable Pull up briefs, size large diaper,brief,adult,disposable As directed disposable gloves As directed epinephrine IM ONCE PRN fluticasone propion-salmeterol 115-21 mcg/actuation (Advair HFA) 2 puffs PO BID gabapentin mg PO [Medium size gloves As directed NS] methimazole mg PO multivitamin (Daily Multi-Vitamin tablet) 1 tab PO DAILY 90 days omeprazole 40 mg PO QAM PRN 90 days simvastatin 20 mg PO DAILY 90 days torsemide 20 mg PO BID umeclidinium 62.5 mcg/actuation (Incruse Ellipta) 1 inh inhalation DAILY [Updraft machine As directed] [Weighing machine As directed] Do you need a note to return to daycare/school/sports/work: No HPI HPI COPD: Details: DEANNA IS 73 YEARS OLD FEMALE, WITH DIAGNOSIS OF COPD WELL CHRONIC STASIS EDEMA OF LOWER EXTREMITIES. SHE HAS HISTORY OF SLEEP APNEA WITH NOCTURNAL HYPOXEMIA. NOT ABLE TO USE CPAP SO SHE HAS BEEN USING O2 4 L/MINUTE AT NIGHT. BECAUSE SHE GETS SHORT OF BREATH ON MINIMAL EXERTION SHE HAS ALSO BEEN USING O2 4 L/MINUTE DURING THE DAYTIME AT HOME. SHE IS SOMEWHAT CONFUSED ABOUT THE OXYGEN AND DESCRIBES THAT SHE JUST HAS A LARGE CYLINDER AT HOME. I THINK SHE MOST LIKELY HAS STATIONARY CONCENTRATOR. WE NEED TO CONTACT THE DME SUPPLIER AND CLARIFY THIS ISSUE. SHE IS MOSTLY SITTING IN THE CHAIR IN THE RECLINER AT HOME. HAS DIFFICULTY IN WALKING AROUND. SHE IS EITHER IN WHEELCHAIR OR TRIES TO WALK WITH A WALKER. HER MAIN COMPLAINT IS THAT THE MOMENT SHE TRIES TO WALK WITH A WALKER SHE GETS SHORT OF BREATH VERY QUICKLY WITHIN A FEW MINUTES. SHE DOES USE. HER INHALERS REGULARLY SHE HAS HAD NO RECENT RESPIRATORY INFECTION. [facility] Medical History (Updated 04/15/24 @ 14:30 by Min Saha MD) Respiratory failure with hypoxia CHF (congestive heart failure) JAYLENE (obstructive sleep apnea) Osteoporosis Chronic GERD Hypertension, essential Elevated serum immunoglobulin free light chain level Hyperthyroidism Swelling of lower extremity Constipation by delayed colonic transit Migraine Difficulty sleeping Arthrosis COPD (chronic obstructive pulmonary disease) Surgical History History of knee replacement procedure of left knee H/O colonoscopy Social History Housing: House Patient Tobacco Use Status: Current everyday Tobacco user Tobacco use type: Cigarette Cigarettes Per Day: 2 e-Cigarette/Vaping Use: Never Used service: No Current occupational status: disabled Cognitive needs: No Hearing needs: No Vision needs: Yes Review of Systems Const All systems reviewed & are unremarkable except as noted in HPI and below Reports no additional complaints ENT Reports no additional complaints Card Reports irregular heart rhythm, Reports leg edema and Reports dyspnea on exertion Resp Reports as per HPI and Reports dyspnea on exertion GI Reports heartburn (treated with med .) Reports no additional complaints Musc Reports abnormal gait (Non ambulatory because of marked weakness of lower extremities, uses wheelc), Reports back pain and Reports arthralgias Skin/Breast Reports system reviewed and no additional complaints, except as documented Neuro Reports abnormal gait (Non ambulatory because of marked weakness of lower extremities, uses wheelc) Psych Reports no additional complaints Physical Exam Vital Signs: Last Vital Signs Pulse 99 04/15/24 13:41 BP 128/80 04/15/24 13:41 Pulse Ox 93 04/15/24 13:41 Oxygen Delivery Method Room Air 04/15/24 13:41 Const General: comfortable, no acute distress, alert and awake Orientation/consciousness: patient oriented x3 HEENT Head: Yes normal to inspection General nose exam: No nasal polyps present and No nasal discharge present Face and sinus: Yes sinuses nontender Mouth: oropharynx normal Throat: Yes posterior oropharynx normal Eyes General: appearance normal, both eyes and all related structures Neck Neck: Yes normal visual inspection, Yes no lymphadenopathy and Yes trachea midline Thyroid: Thyroid normal Chest Chest palpation & inspection: normal inspection of the chest, normal palpation of entire chest wall and no tenderness Resp Other: BREATH SOUNDS ARE DISTANT, ESPECIALLY DECREASED OVER THE BASILAR AREAS. NO WHEEZES, RHONCHI OR CREPS ARE HEARD . Cardio Palpation: normal PMI Rate: regular rate Rhythm: regular rhythm Heart sounds: no gallops and no murmurs GI Palpation (GI): Soft to palpation, nontender, No hepatosplenomegaly present and no masses Auscultation: normal bowel sounds Back/Spine/Pelvis Thoracic/Lumbar Spine: thoracic and lumbar spine normal to inspection and thoraco-lumbar ROM limited Skin General skin exam: no rashes or lesions noted Neuro General: patient oriented x3, No gait normal (GAIT IMPAIRED AND SHE IS MOSTLY IN THE WHEELCHAIR, AT HOME ,USES WALKER) and no focal motor deficits Cranial nerves: Yes CN's II-XII intact bilaterally Extrem General: Yes edema (SHE HAS CHRONIC EDEMA THE LOWER EXTREMITIES WITH CHRONIC STASIS DERMATITIS ) Psych Appearance: grossly normal Speech and movement: Normal speech and movement present Assessment & Plan Assessment & Plan (1) COPD, severe: Comment: PATIENT IS A KNOWN CASE OF CHRONIC OBSTRUCTIVE PULMONARY DISEASE, SEVERE, BUT REMAINS WELL CONTROLLED. Code(s): J44.9 - Chronic obstructive pulmonary disease, unspecified Category: Medical Plan: [place] : INCRUSE ELLIPTA 1 INHALATION DAILY ADVAIR HFA 115-21 2 PUFFS B.I.D.. ALBUTEROL HFA 2 PUFFS Q 6 HOURS P.R.N. ALSO USES ALBUTEROL INHALATION SOLUTION IN THE NEBULIZER Q 4-6 HOURS P.R.N., (2) JAYLENE (obstructive sleep apnea): Comment: PATIENT HAS HISTORY OF JAYLENE WITH NOCTURNAL HYPOXEMIA PATIENT HAS NOT BEEN ABLE TO USE THE CPAP. SHE DOES USE O2 4 L/MINUTE DURING THE NIGHT. Code(s): G47.33 - Obstructive sleep apnea (adult) (pediatric) Category: Medical Plan: ADVISED TO CONTINUE USING O2 4 L/MINUTE AT NIGHT (3) CHF (congestive heart failure): Comment: PATIENT HAS HISTORY OF ISCHEMIC CARDIOMYOPATHY AND CHRONIC CONGESTIVE HEART FAILURE. Code(s): I50.9 - Heart failure, unspecified Category: Medical Qualifiers: Heart failure type: other Qualified Code(s): I50.9 - Heart failure, unspecified Plan: ADVISED TO CONTINUE THE DIURETIC THERAPY, TORSEMIDE 20 MG B.I.D.. AND SHE SHOULD CONTINUE TO FOLLOW-UP WITH CARDIOLOGY SERVICE REGULARLY. (4) Respiratory failure with hypoxia: Comment: IN ADDITION TO NOCTURNAL HYPOXEMIA, SHE ALSO HAS A EXERTIONAL HYPOXEMIA. HAS BEEN USING OXYGEN 4 L/MINUTE 24 HOURS A DAY. HOWEVER HER TUBING IS SHORT AND WHEN SHE HAS TO WALK TO THE BATHROOM SHE CAN NOT USE THE OXYGEN. SHE DOES NOT HAVE PORTABLE O2. AND WOULD NOT BE ABLE TO GO THROUGH 6 MINUTES WALK TO QUALIFY FOR PORTABLE EQUIPMENT. Code(s): J96.91 - Respiratory failure, unspecified with hypoxia Category: Medical Plan: I HAVE RECOMMENDED THAT SHE SHOULD GET A LONGER TUBE WITH CANNULA AND WE WILL SEND A PRESCRIPTION FOR 50 FT O2 TUBING. WITH NASAL CANNULA Coding Level of Care Code Est Pt Level 4 (37763) Diagnoses COPD, severe J44.9 JAYLENE (obstructive sleep apnea) G47.33 Other congestive heart failure I50.9 Heart failure type: other Respiratory failure with hypoxia J96.91
== END 2024-04-15 14:14 | disposition home or self-care (01) ==
PROVIDERS: PCP Internal Medicine; Visit Provider Internal Medicine
DX: J44.9 Chronic obstructive pulmonary disease, unspecified (principal); G47.33 Obstructive sleep apnea (adult) (pediatric); I50.9 Heart failure, unspecified; J96.91 Respiratory failure, unspecified with hypoxia
CPT/HCPCS: 99214

== ENCOUNTER → 2024-04-15 13:34 | Outpatient (BNVA) | payer OTHER, SELFPAY | PROVIDERS: PCP Internal Medicine; Visit Provider Internal Medicine | DX: J44.9 Chronic obstructive pulmonary disease, unspecified (principal); J96.91 Respiratory failure, unspecified with hypoxia; G47.33 Obstructive sleep apnea (adult) (pediatric); I50.9 Heart failure, unspecified | CPT/HCPCS: 99212 ==

== ENCOUNTER 2024-04-30 11:51 | Outpatient (AMB) | payer OTHER, SELFPAY ==
--- NOTE | 2024-04-30 11:53 | MHC.PC.OV ---
Vital Signs 04/30/24 11:54 Height 5 ft 5 in BMI Reason not done Patient refused/unable BP 128/76 Blood Pressure Location Rt brachial Position Sitting Pulse 91 Pulse Source Pulse Oximeter Pulse Oximetry (%) 89 L Oxygen Delivery Method Room Air Intake Visit Reasons: Leg Pain Rsch Intake Note: Pt here for leg pain Allergies lisinopril [LISINOPRIL] Allergy (Severe, Verified 04/30/24 12:07) FACIAL SWELLING, anaphylaxis metoprolol [METOPROLOL] Allergy (Severe, Verified 04/30/24 12:07) SWOLLEN TONGUE Penicillins [PENICILLINS] Allergy (Severe, Verified 04/30/24 12:07) ANAPHYLAXIS coconut Allergy (Intermediate, Verified 04/30/24 12:07) SWELLING morphine [MORPHINE] Allergy (Intermediate, Verified 04/30/24 12:07) VOMITING nicotine Adverse Reaction (Unknown, Verified 04/30/24 12:07) Nightmares Medication List - Last Reconciled 04/30/24 by NIKI Rayo acetaminophen 325 mg PO ONCE PRN 30 days albuterol sulfate 90 mcg/actuation (Ventolin HFA) 2 puffs PO Q4-6H PRN 30 days albuterol sulfate 1.25 mg (3 mL) inhalation Q6H PRN aspirin 81 mg PO DAILY [Blood pressure machine As directed] [Body wipes As directed-uses 4 per day] diaper,brief,adult,disposable Pull up briefs, size large diaper,brief,adult,disposable As directed disposable gloves As directed epinephrine IM ONCE PRN fluticasone propion-salmeterol 115-21 mcg/actuation (Advair HFA) 2 puffs PO BID gabapentin mg PO [Medium size gloves As directed NS] methimazole mg PO multivitamin (Daily Multi-Vitamin tablet) 1 tab PO DAILY 90 days omeprazole 40 mg PO QAM PRN 90 days simvastatin 20 mg PO DAILY 90 days torsemide 20 mg PO BID umeclidinium 62.5 mcg/actuation (Incruse Ellipta) 1 inh inhalation DAILY [Updraft machine As directed] [Weighing machine As directed] Tobacco use date assessed: 04/30/24 Fall risk assessment: No Falls in past year Dental Screening Dental Screen Date: 11/07/23 HPI HPI Comments History of Present Illness Details Patient is a 73-year-old female in today for a sick visit. Patient is currently offering complaints of left lower extremity pain x2 weeks. Patient utilizes wheelchair to ambulate, has bilateral lower extremity edema, currently taking torsemide. Patient has establish care with Cardiology and pulmonology. Has been directed to follow up with Cardiology. Patient has limited range of motion of extremity, though this may be baseline. I am unable to ambulate on the affected extremity. Edema of left leg is slightly more pronounced than the right extremity. Will order ultrasound of the left lower extremity to rule out DVT. Patient is also offering complaint of bilateral dry skin and scaling on her forearms. Has utilize lotion with little relief. Will send triamcinolone cream. Upon exam she was 89% on room air. Patient was given nebulizer treatment in office, post nebulizer treatment patient's O2 saturation was 95%. Patient has been instructed to bring her Ventolin inhaler with her when she goes outside the house. She does utilize O2 at home, does not have a portable oxygen device. Will give patient short course of prednisone [facility] Medical History Respiratory failure with hypoxia CHF (congestive heart failure) JAYLENE (obstructive sleep apnea) Osteoporosis Chronic GERD Hypertension, essential Elevated serum immunoglobulin free light chain level Hyperthyroidism Swelling of lower extremity Constipation by delayed colonic transit Migraine Difficulty sleeping Arthrosis COPD (chronic obstructive pulmonary disease) Surgical History History of knee replacement procedure of left knee H/O colonoscopy Social History Housing: House Patient Tobacco Use Status: Current everyday Tobacco user Tobacco use type: Cigarette Cigarettes Per Day: 2 e-Cigarette/Vaping Use: Never Used service: No Current occupational status: disabled Cognitive needs: No Hearing needs: No Vision needs: Yes Questionnaire Thrive Questionnaire Date Thrive assessed: 11/07/23 MIKE-7 AMB Questionnaire MIKE-7 Date MIKE - 7 assessed: 11/07/23 Source: Developed by Drs. Ham Baker, Brook White, Wilbert Pompa and colleagues, with an educational shantelle from [employer] Review of Systems Const All systems reviewed & are unremarkable except as noted in HPI and below Physical exam (Primary Care) Vital Signs: Last Vital Signs Pulse 91 04/30/24 11:54 BP 128/76 04/30/24 11:54 Pulse Ox 89 L 04/30/24 11:54 Oxygen Delivery Method Room Air 04/30/24 11:54 Tobacco/Smoking Status: Tobacco use Status Tobacco use date assessed 04/30/24 04/30/24 11:59 Patient Tobacco Use Status Current everyday Tobacco 04/30/24 11:59 Tobacco use type Cigarette 04/30/24 11:59 e-Cigarette/Vaping Use Never Used 04/30/24 11:59 Thrive Assessment: Date of Thrive Assessment Date Thrive assessed 11/07/23 04/30/24 11:59 Const Other: Appearance: Alert.? Oriented X3.? No acute distress.? Head: Normocephalic, atraumatic, no step-offs or deformities Eyes: Pupils equal, round and reactive to light.? CVS: Normal heart rate and rhythm.? Pulses normal.? Respiratory: Diminshed breath sounds bilaterally. ? Abdomen: Soft and nontender.? Skin: Dry ,scaling rash to bilateral forearms. No discharge. Extremities: Bilaterally lower extremity edema. More on left than right.? No calf ttp. 5/5 strength to bilateral upper and lower extremities Neuro: Oriented X 3.? No motor deficit.? No sensory deficit. CN 2-12 intact Post nebulizer treatment 02% is 95% on RA. Office Procedures Nebulizer Treatment Nebulizer Treatment [id number]/MDI RX initial, or Nebulizer Subsequent Treatment Office Meds albuterol sulfate 2.5 mg/3 mL (0.083 %) solution for nebulization Performing Provider: NIKI Rayo Performing Location: [facility] Administered by: NIKI Rayo on 04/30/24 12:21 Dose Route Admin Location Dispensed Lot Number Expiration Date NDC Resident Care Director 2.5 mg inhalation 3 mL [id number] 11/20/24 09927-637-14 [employer] Assessment and Plan Assessment & Plan (1) Lower extremity pain, left: Comment: Patient will be given stat ultrasound of left lower extremity. Code(s): M79.605 - Pain in left leg (2) Respiratory failure with hypoxia: Comment: IN ADDITION TO NOCTURNAL HYPOXEMIA, SHE ALSO HAS A EXERTIONAL HYPOXEMIA. HAS BEEN USING OXYGEN 4 L/MINUTE 24 HOURS A DAY. HOWEVER HER TUBING IS SHORT AND WHEN SHE HAS TO WALK TO THE BATHROOM SHE CAN NOT USE THE OXYGEN. SHE DOES NOT HAVE PORTABLE O2. AND WOULD NOT BE ABLE TO GO THROUGH 6 MINUTES WALK TO QUALIFY FOR PORTABLE EQUIPMENT. Patient given short course of prednisone today. Patient had good response to in office nebulizer treatment. Patient has been educated to carry with her Ventolin inhaler pump. Code(s): J96.91 - Respiratory failure, unspecified with hypoxia Qualifiers: Chronicity: chronic Qualified Code(s): J96.11 - Chronic respiratory failure with hypoxia (3) Atopic dermatitis: Comment: Patient will be given triamcinolone cream to of apply to the affected area. Patient has been educated to follow-up if condition does not improve over the next 1-2 weeks Code(s): L20.9 - Atopic dermatitis, unspecified Qualifiers: Atopic dermatitis type: unspecified Qualified Code(s): L20.9 - Atopic dermatitis, unspecified Orders: Orders US venous duplex LE LT Today M79.606 - Pain in leg, unspecified, R60.9 - Edema, unspecified AMB Nebulizer Treatment Today J96.91 - Respiratory failure, unspecified with hypoxia Medications: New prednisone 20 mg PO BID 10 tabs 0RF triamcinolone acetonide 0.1% 1 appl topical DAILY 30 grams 0RF Coding Level of Care Code Est Pt Level 4 (50378) Diagnoses Lower extremity pain, left M79.605 Chronic respiratory failure with hypoxia J96.11 Chronicity: chronic Atopic dermatitis, unspecified type L20.9 Atopic dermatitis type: unspecified CPT Codes Nebulizer Treatment - Nebulizer Treatment, initial or subsequent: [id number]/MDI RX initial, or Nebulizer Subsequent Treatment ([id number]) Time Spent (min) 30
[2024-04-30 11:54] VITALS: BP 128/76; PULSE 91; O2SAT 89
== END 2024-04-30 12:32 | disposition home or self-care (01) ==
PROVIDERS: PCP Internal Medicine; Visit Provider Nurse Practitioner Primary Care
DX: M79.605 Pain in left leg (principal); J96.11 Chronic respiratory failure with hypoxia; L20.9 Atopic dermatitis, unspecified
CPT/HCPCS: 94640; 99214; J7613

== ENCOUNTER 2024-04-30 12:42 | Outpatient (REF) | payer OTHER, SELFPAY ==
--- NOTE | ~2024-04-30 | US_ITS ---
EXAMINATION: US VENOUS ULTRASOUND WITH DOPPLER LOWER EXTREMITY, LEFT CLINICAL INFORMATION: Left leg pain COMPARISON: Ultrasound triplex left lower extremity on 03/23/2020 TECHNIQUE: Ultrasound of the deep veins is performed from the hip to the calf with compression sonography and color and pulse Doppler assessment. Spectral analysis with color-flow imaging is performed. FINDINGS: There is normal venous compression and respiratory variation and augmented flow. The visualized common femoral vein, superficial femoral vein, profunda femoral vein, popliteal vein, and the trifurcation region shows no evidence of deep venous thrombosis. There is no significant popliteal fossa cyst. The right common femoral vein shows normal color Doppler flow signal, phasic flow, normal directional venous Doppler flow spectrum. If the patient's symptoms persist, followup ultrasound in 5 days 7 days might be of value to exclude proximal propagation from a non-visualized calf vein. US/US venous duplex LE IMPRESSION: Unchanged, No DVT demonstrated in the left lower extremity. Current evaluation is markedly limited by body habitus and high sensitivity to pain during scanning.
== END 2024-04-30 12:43 | disposition home or self-care (01) ==
LOC: HO.HMGCX 12:42
PROVIDERS: PCP Internal Medicine; Visit Provider Nurse Practitioner Primary Care
DX: M79.602 Pain in left arm (principal); R60.9 Edema, unspecified
CPT/HCPCS: 93971